=== PATIENT | female | born 1990 | race African-American/Black ===

== ENCOUNTER 2017-12-10 09:37 | Emergency (ER) | payer MEDICAID ==
[~2017-12-10] VITALS: Ht 162.6 cm; Wt 68.0 kg
[2017-12-10 12:17] LABS: CLARITY URINE CLOUDY (CLEAR); COLOR URINE YELLOW (YELLOW); KETONES URINE TRACE (NEGATIVE); LEUKOCYTE ESTERASE URINE NEGATIVE (NEGATIVE); NITRITE URINE NEGATIVE (NEGATIVE); OCCULT BLOOD URINE TRACE (NEGATIVE); PROTEIN URINE TRACE (NEGATIVE); SPECIFIC GRAVITY URINE 1.011 (1.005-1.030)
[2017-12-10 13:38] VITALS: BP 112/67
== END 2017-12-10 13:42 | disposition home or self-care (01) ==
LOC: ER 09:37
DX: N39.0 Urinary tract infection, site not specified (principal); M54.5 Low back pain
CPT/HCPCS: 81003; 87077; 87086; 99284

== ENCOUNTER 2018-01-06 17:13 | Emergency (ER) | payer MEDICAID ==
[~2018-01-06] VITALS: Ht 170.2 cm; Wt 71.2 kg
[2018-01-06] MEDS ORDERED: ACETAMINOPHEN 325MG TABLET PO ONE (18:45)
[2018-01-06 19:11] LABS: BASOPHILS % 0.5 % (0.0-2.0); EOSINOPHILS % 0.2 % (0.0-5.0); HEMATOCRIT. 40.5 % (36.0-48.0); HEMOGLOBIN. 13.8 g/dL (12.0-16.0); LYMPHOCYTES % 29.7 % (20.0-50.0); MEAN CORPUSCULAR HEMOGLOBIN 32.1 pg (28.0-32.0); MEAN CORPUSCULAR VOLUME 94.2 fL (81.0-99.0); MEAN PLATELET VOLUME 8.8 fl (7.4-10.4); MONOCYTES % 8.8 % (2.0-8.0); NEUTROPHILS % 60.8 % (40.0-76.0); PLATELET 235 x1000/uL (130-400); RED CELL DISTRIBUTION WIDTH 13.2 % (11.6-14.6)
[2018-01-06 19:17] LABS: CHLORIDE 104 mEq/L (98-107)
[2018-01-06 19:24] LABS: HCG SCREEN NEGATIVE
[2018-01-06 19:41] LABS: CLARITY URINE CLEAR (CLEAR); COLOR URINE YELLOW (YELLOW); KETONES URINE NEGATIVE (NEGATIVE); LEUKOCYTE ESTERASE URINE NEGATIVE (NEGATIVE); NITRITE URINE NEGATIVE (NEGATIVE); OCCULT BLOOD URINE NEGATIVE (NEGATIVE); PROTEIN URINE NEGATIVE (NEGATIVE); SPECIFIC GRAVITY URINE 1.021 (1.005-1.030); UROBILINOGEN URINE 0.2 E.U./dL (0.2-1.0)
[2018-01-06] MEDS ORDERED: POTASSIUM CHLORIDE 20MEQ TABLET SR PO ONE (20:45)
[2018-01-06 21:33] VITALS: BP 107/63
== END 2018-01-06 21:34 | disposition home or self-care (01) ==
LOC: ER 17:13
DX: N39.0 Urinary tract infection, site not specified (principal); B96.89 Other specified bacterial agents as the cause of diseases classified elsewhere; M54.5 Low back pain; Z98.890 Other specified postprocedural states
CPT/HCPCS: 36415; 80053; 81003; 83690; 84703; 85025; 85610; 87086; 99284

== ENCOUNTER 2018-08-31 02:16 | Emergency (ER) | payer MEDICAID ==
[~2018-08-31] VITALS: Ht 170.2 cm; Wt 74.3 kg
[2018-08-31 06:12] LABS: CLARITY URINE CLEAR (CLEAR); COLOR URINE YELLOW (YELLOW); KETONES URINE TRACE (NEGATIVE); LEUKOCYTE ESTERASE URINE NEGATIVE (NEGATIVE); NITRITE URINE NEGATIVE (NEGATIVE); OCCULT BLOOD URINE NEGATIVE (NEGATIVE); PH URINE 5.5 (4.5-8.0); PROTEIN URINE NEGATIVE (NEGATIVE); SPECIFIC GRAVITY URINE 1.031 (1.005-1.030)
[2018-08-31 06:49] LABS: BASOPHILS % 0.6 % (0.0-2.0); CHLORIDE 112 mEq/L (98-107); EOSINOPHILS % 0.3 % (0.0-5.0); HEMOGLOBIN. 12.7 g/dL (12.0-16.0); LYMPHOCYTES % 34.7 % (20.0-50.0); MEAN CORPUSCULAR VOLUME 95.3 fL (81.0-99.0); MEAN PLATELET VOLUME 7.9 fl (7.4-10.4); MONOCYTES % 8.7 % (2.0-8.0); NEUTROPHILS % 55.7 % (40.0-76.0); PLATELET 218 x1000/uL (130-400); RED BLOOD CELL COUNT 3.98 mill/uL (4.2-5.4); RED CELL DISTRIBUTION WIDTH 12.8 % (11.6-14.6)
[2018-08-31 07:15] VITALS: BP 118/55
== END 2018-08-31 08:47 | disposition home or self-care (01) ==
LOC: ER 02:16
DX: R07.9 Chest pain, unspecified (principal); R00.2 Palpitations; Z90.89 Acquired absence of other organs
CPT/HCPCS: 36415; 71045; 81025; 84484; 85379; 93005; 99284

== ENCOUNTER 2019-04-21 17:08 | Emergency (ER) | payer MEDICAID ==
[~2019-04-21] VITALS: Ht 167.6 cm; Wt 68.0 kg
[2019-04-21 18:07] VITALS: BP 97/68
== END 2019-04-21 20:17 | disposition home or self-care (01) ==
LOC: ER 18:00
DX: S09.90XA Unspecified injury of head, initial encounter (principal); H53.8 Other visual disturbances; Z90.89 Acquired absence of other organs; V29.88XA Motorcycle rider (driver) (passenger) injured in other specified transport accidents, initial encounter; Y93.89 Activity, other specified; Y92.89 Other specified places as the place of occurrence of the external cause; Y99.8 Other external cause status
CPT/HCPCS: 81025; 99284